=== PATIENT | female | born 1930 | race Caucasian/White ===

== ENCOUNTER → 2017-07-31 | Outpatient (CLI) | payer MEDICARE, OTHER | END | disposition home or self-care (01) | LOC: HKI 13:24 | DX: M16.12 Unilateral primary osteoarthritis, left hip (principal); I10 Essential (primary) hypertension; E03.9 Hypothyroidism, unspecified | CPT/HCPCS: G0463 ==

== ENCOUNTER 2017-09-17 08:48 | Inpatient (IN) | payer MEDICARE, OTHER ==
[~2017-09-17 08:48] MED LIST: ACETAMINOPHEN 1000MG/100ML IV 100 ML IVPB; ATROPINE 1 MG/10 ML SYRINGE IV; DEXAMETHASONE 4 MG/ML 1 ML INJ IV; DIPHENHYDRAMINE 50 MG INJ IV; EPHEDrine SULFATE 50 MG/5 ML SYG IV; FENTAnyl 50 MCG/ML VIAL IV; HYDROmorphONE (0.2 MG/ML) 10ML SYG IV; LABETALOL HCL 20MG INJ IV; LANSOPRAZOLE 30 MG CAP PO; MEPERIDINE 25 MG INJ IV; MIDAZOLAM 1 MG/ML 2 ML INJ IV; ONDANSETRON 4 MG INJ IV; OXYCODONE/ACETAMINOPHEN (5/325) TAB PO; hydrALAzine 20 MG INJ IV; morphine (1 MG/ML) 10ML SYRINGE IV
[2017-09-17] MEDS: ACETAMINOPHEN 1000MG/100ML IV 100 ML IVPB (09:38)
[2017-09-17] MEDS: ONDANSETRON 4 MG INJ IV ×4 (09:38→17:54)
[2017-09-17] MEDS: LANSOPRAZOLE 30 MG CAP PO (09:38)
[2017-09-17] MEDS: DEXAMETHASONE 4 MG/ML 1 ML INJ IV (09:39)
[2017-09-17] MEDS ORDERED: ROCURONIUM 50 MG INJ ×2 (10:41→10:43)
[2017-09-17] MEDS ORDERED: MIDAZOLAM 1 MG/ML 2 ML INJ ×2 (10:41→10:43)
[2017-09-17] MEDS ORDERED: DEXAMETHASONE 4 MG/ML 1 ML INJ (10:41)
[2017-09-17] MEDS ORDERED: FENTAnyl 50 MCG/ML VIAL ×2 (10:41→10:43)
[2017-09-17] MEDS ORDERED: ONDANSETRON 4 MG INJ (10:41)
[2017-09-17] MEDS ORDERED: PROPOFOL 100 ML (10:41)
[2017-09-17] MEDS ORDERED: NEOSTIGMINE 3 MG/3 ML SYRINGE ×2 (10:41→10:43)
[2017-09-17] MEDS ORDERED: GLYCOPYRROLATE 0.4 MG INJ ×2 (10:41→10:43)
[2017-09-17] MEDS ORDERED: CEFAZOLIN 1 GM INJ (10:41)
[2017-09-17] MEDS ORDERED: PROPOFOL 20 ML ×2 (10:41→10:43)
[2017-09-17] MEDS ORDERED: LIDOCAINE 2% (SDV) 5 ML INJ (10:42)
[2017-09-17] MEDS ORDERED: SUGAMMADEX SODIUM 200 MG/2 ML VIAL IV ×2 (11:16→13:07)
[2017-09-17] MEDS ORDERED: BACITRACIN 50000 UNITS INJ (11:32)
[2017-09-17] MEDS ORDERED: POLYMYXIN B 500000 UNIT INJ (11:34)
[2017-09-17] MEDS: LACTATED RINGER'S 1,000 ML IV (11:40)
[2017-09-17] MEDS ORDERED: DIPHENHYDRAMINE 50 MG INJ IV ×2 (12:00→13:00)
[2017-09-17] MEDS ORDERED: TRIMETHOBENZAMIDE 100 MG/ML VIAL IM ×2 (12:00→13:00)
[2017-09-17] MEDS ORDERED: NALOXONE (0.4 MG/ML) INJ IV (12:00)
[2017-09-17] MEDS ORDERED: MAGNESIUM HYDROXIDE 30ML CUP PO (12:00)
[2017-09-17] MEDS ORDERED: NA PHOSPHATE/BIPHOS 133 ML ENEMA PR (12:00)
[2017-09-17] MEDS ORDERED: NACL 0.9% 3 ML SYG IV (12:00)
[2017-09-17] MEDS ORDERED: SENNA/DOCUSATE NA (8.6MG/50MG) TAB PO (12:00)
[2017-09-17] MEDS ORDERED: BETHANECHOL 25 MG TAB PO (12:00)
[2017-09-17] MEDS ORDERED: oxyCODONE 5 MG TAB PO ×2 (12:00)
[2017-09-17] MEDS ORDERED: BISACODYL 10 MG SUPP PR (12:00)
[2017-09-17] MEDS: TRANEXAMIC ACID 1,000 MG in D5W 100 ML AT INCISION X1 IVPB (12:17)
[2017-09-17] MEDS ORDERED: MEPERIDINE 25 MG INJ IV (13:00)
[2017-09-17] MEDS ORDERED: LABETALOL HCL 20MG INJ IV (13:00)
[2017-09-17] MEDS ORDERED: hydrALAzine 20 MG INJ IV (13:00)
[2017-09-17] MEDS ORDERED: ALBUTEROL 0.083% (NEB) 2.5 MG/3 ML AMP HHN (13:00)
[2017-09-17] MEDS ORDERED: FENTAnyl 50 MCG/ML VIAL IV ×3 (13:00)
[2017-09-17] MEDS ORDERED: HYDROmorphONE (0.2 MG/ML) 10ML SYG IV ×3 (13:00)
[2017-09-17] MEDS ORDERED: IPRATROPIUM (NEB) 0.5 MG/2.5 ML AMP HHN (13:00)
[2017-09-17] MEDS ORDERED: EPHEDrine SULFATE 50 MG/5 ML SYG IV (13:00)
[2017-09-17] MEDS ORDERED: OXYCODONE/ACETAMINOPHEN (5/325) TAB PO ×2 (13:00)
[2017-09-17] MEDS ORDERED: MIDAZOLAM 1 MG/ML 2 ML INJ IV (13:00)
[2017-09-17] MEDS: POLYMYXIN B 500000 UNIT INJ IRR (13:15)
[2017-09-17] MEDS: BACITRACIN 50000 UNITS INJ IRR (13:15)
[2017-09-17] MEDS: TRANEXAMIC ACID 1,000 MG in D5W 100 ML AT CLOSURE X1 IVPB (13:17)
[2017-09-17] MEDS: CEFAZOLIN 2 GM/50 ML (PMX) 50 ML (FOR WT < 120 KG) IVPB (13:59)
[2017-09-17] MEDS: DOCUSATE SODIUM 100 MG CAP PO (14:09)
[2017-09-17] MEDS: CEFAZOLIN 1 GM/50 ML (PMX) 50 ML IVPB ×2 (14:10→20:28)
[2017-09-17] MEDS: ASPIRIN (EC) 325 MG TAB PO (14:10)
[2017-09-17] MEDS ORDERED: ROPIVACAINE 0.5 % 30 ML VIAL (14:32)
[2017-09-17] MEDS: SOD CHLORIDE 0.9% 1,000 ML IV (15:14)
[2017-09-17] MEDS: oxyCODONE 5 MG TAB PO (18:43)
[2017-09-17] MEDS: GABAPENTIN 100 MG CAP PO (20:28)
[2017-09-18] MEDS: SOD CHLORIDE 0.9% 1,000 ML IV ×2 (00:02→03:28)
[2017-09-18] MEDS: CEFAZOLIN 1 GM/50 ML (PMX) 50 ML IVPB (03:28)
[2017-09-18 05:28] LABS: ADD MAN DIFF? NO
[2017-09-18 05:35] LABS: WHITE BLOOD COUNT 7.7 10^3/ul (4.8-10.8)
[2017-09-18 05:35] LABS: BASOPHILS % 0.1 % (0.0-2.0); HEMATOCRIT 30.5 % (37.0-47.0); HEMOGLOBIN 10.3 g/dl (12.0-16.0); LYMPHOCYTES # 0.7 10^3/ul (0.8-2.9); LYMPHOCYTES % 8.8 % (15.0-51.0); MEAN CORPUSCULAR HEMOGLOBIN 32.7 pg (29.0-33.0); MEAN CORPUSCULAR HGB CONC 33.8 g/dl (32.0-37.0); MEAN CORPUSCULAR VOLUME 96.8 fl (82.0-101.0); MEAN PLATELET VOLUME 9.3 fl (7.4-10.4); MONOCYTE # 0.7 10^3/ul (0.3-0.9); MONOCYTES % 9.6 % (0.0-11.0); NEUTROPHIL # 6.2 10^3/ul (1.6-7.5); NEUTROPHILS % 80.7 % (39.0-77.0); PLATELET COUNT 177 10^3/UL (140-415); RED BLOOD COUNT 3.15 10^6/ul (4.20-5.40); RED CELL DISTRIBUTION WIDTH 12.9 % (11.5-14.5)
[2017-09-18 05:49] LABS: ANION GAP 10 (8-16); BLOOD UREA NITROGEN 19 mg/dl (7-20); CALCIUM 8.7 mg/dl (8.4-10.2); CARBON DIOXIDE 26 mmol/L (21-31); CHLORIDE 109 mmol/L (97-110); CREATININE 0.58 mg/dl (0.44-1.00); GLUCOSE 123 mg/dl (70-220); POTASSIUM 4.8 mmol/L (3.5-5.1); SODIUM 140 mmol/L (135-144)
[2017-09-18] MEDS: PANTOPRAZOLE (EC) 40 MG TAB PO (05:53)
[2017-09-18] MEDS: ONDANSETRON 4 MG INJ IV ×2 (06:00)
[2017-09-18] MEDS: DOCUSATE SODIUM 100 MG CAP PO (09:37)
[2017-09-18] MEDS: CELECOXIB 100 MG CAP PO (09:37)
[2017-09-18] MEDS: GABAPENTIN 100 MG CAP PO (09:37)
[2017-09-18] MEDS: ASPIRIN (EC) 325 MG TAB PO (09:37)
[2017-09-18] MEDS: FERROUS FUMARATE (SR) TAB PO (09:37)
== END 2017-09-18 15:02 | disposition home health service (06) | DRG 470 ==
LOC: REC 08:48 → MS1 14:40
PROC: 0SRB02A Replacement of Left Hip Joint with Metal on Polyethylene Synthetic Substitute, Uncemented, Open Approach (ICD-10-PCS; principal; 2017-09-17 11:00)
DX: M16.12 Unilateral primary osteoarthritis, left hip (principal); E03.9 Hypothyroidism, unspecified; I10 Essential (primary) hypertension; I34.1 Nonrheumatic mitral (valve) prolapse
CPT/HCPCS: 72170; 80048; 85025; 86850; 86900; 86901; 88304; 88311; 93306; 97116; 97161; 97166

== ENCOUNTER → 2017-10-05 | Outpatient (CLI) | payer MEDICARE, OTHER | END | disposition home or self-care (01) | LOC: HKI 09:40 | DX: Z09 Encounter for follow-up examination after completed treatment for conditions other than malignant neoplasm (principal); Z96.642 Presence of left artificial hip joint | CPT/HCPCS: 73502 ==

== ENCOUNTER → 2017-11-13 | Outpatient (CLI) | payer MEDICARE, OTHER | END | disposition home or self-care (01) | LOC: HKI 10:10 | DX: M25.552 Pain in left hip (principal); Z96.642 Presence of left artificial hip joint | CPT/HCPCS: 73502 ==

== ENCOUNTER 2017-11-28 12:28 | Inpatient (IN) | payer MEDICARE, OTHER ==
[2017-11-28] MEDS: FUROSEMIDE 40 MG INJ IV ×2 (13:06→22:34)
[2017-11-28 13:07] LABS: ADD MAN DIFF? NO
[2017-11-28 13:08] LABS: WHITE BLOOD COUNT 5.7 10^3/ul (4.8-10.8)
[2017-11-28 13:08] LABS: BASOPHILS % 0.4 % (0.0-2.0); EOSINOPHILS % 0.5 % (0.0-7.0); HEMATOCRIT 41.5 % (37.0-47.0); HEMOGLOBIN 13.9 g/dl (12.0-16.0); LYMPHOCYTES # 1.1 10^3/ul (0.8-2.9); LYMPHOCYTES % 18.6 % (15.0-51.0); MEAN CORPUSCULAR HGB CONC 33.5 g/dl (32.0-37.0); MEAN CORPUSCULAR VOLUME 95.4 fl (82.0-101.0); MONOCYTE # 0.5 10^3/ul (0.3-0.9); MONOCYTES % 8.3 % (0.0-11.0); NEUTROPHIL # 4.1 10^3/ul (1.6-7.5); PLATELET COUNT 258 10^3/UL (140-415); RED BLOOD COUNT 4.35 10^6/ul (4.20-5.40); RED CELL DISTRIBUTION WIDTH 12.8 % (11.5-14.5)
[2017-11-28 13:33] LABS: ANION GAP 13 (8-16); BLOOD UREA NITROGEN 29 mg/dl (7-20); CALCIUM 9.8 mg/dl (8.4-10.2); CARBON DIOXIDE 20 mmol/L (21-31); CHLORIDE 109 mmol/L (97-110); CREATININE 0.72 mg/dl (0.44-1.00); GLUCOSE 117 mg/dl (70-220); POTASSIUM 4.6 mmol/L (3.5-5.1); SODIUM 137 mmol/L (135-144)
[2017-11-28] MEDS: SOD CHLORIDE 0.9% 100 ML (13:37)
[2017-11-28] MEDS: IOHEXOL 100 ML (13:38)
[2017-11-28 13:48] LABS: TROPONIN-I 0.235 ng/ml (0.000-0.120)
[2017-11-28] MEDS ORDERED: NITROGLYCERIN (SL) 0.4 MG TAB SL ×2 (14:00→14:30)
[2017-11-28] MEDS: NITROGLYCERIN 2% 1 GM OINT PKT TD (14:10)
[2017-11-28] MEDS: ASPIRIN 81 MG TAB PO (14:10)
[2017-11-28] MEDS ORDERED: ZOLPIDEM 5 MG TAB PO (14:30)
[2017-11-28] MEDS ORDERED: LORAZEPAM 0.5 MG TAB PO (14:30)
[2017-11-28] MEDS ORDERED: NACL 0.9% 3 ML SYG IV (14:30)
[2017-11-28 15:07] LABS: CREATINE KINASE 120 IU/L (23-200)
[2017-11-28 15:17] LABS: CK-MB 4.13 ng/ml (0.0-2.4)
[2017-11-28 19:53] LABS: CREATINE KINASE 105 IU/L (23-200)
[2017-11-28 20:06] LABS: CK INDEX 3.5; CK-MB 3.69 ng/ml (0.0-2.4); TROPONIN-I 0.181 ng/ml (0.000-0.120)
[2017-11-28] MEDS: FAMOTIDINE 20 MG TAB PO (21:00)
[2017-11-28] MEDS: ACETAMINOPHEN 325 MG TAB PO (21:00)
[2017-11-28] MEDS: HEPARIN 5,000 UNIT/0.5 ML VIAL SC (21:05)
[2017-11-28] MEDS: traMADol 50 MG TAB PO (22:34)
[2017-11-29 01:03] LABS: CREATINE KINASE 87 IU/L (23-200)
[2017-11-29 01:16] LABS: CK INDEX 3.3; CK-MB 2.87 ng/ml (0.0-2.4)
[2017-11-29 01:17] LABS: TROPONIN-I 0.218 ng/ml (0.000-0.120)
[2017-11-29 06:45] LABS: ADD MAN DIFF? NO
[2017-11-29 06:49] LABS: BASOPHILS % 0.4 % (0.0-2.0); EOSINOPHILS # 0.1 10^3/ul (0.0-0.5); HEMATOCRIT 38.9 % (37.0-47.0); HEMOGLOBIN 12.4 g/dl (12.0-16.0); LYMPHOCYTES % 13.2 % (15.0-51.0); MEAN CORPUSCULAR HEMOGLOBIN 31.2 pg (29.0-33.0); MEAN CORPUSCULAR HGB CONC 31.9 g/dl (32.0-37.0); MEAN PLATELET VOLUME 9.3 fl (7.4-10.4); MONOCYTE # 0.7 10^3/ul (0.3-0.9); MONOCYTES % 10.3 % (0.0-11.0); NEUTROPHIL # 5.4 10^3/ul (1.6-7.5); NEUTROPHILS % 74.8 % (39.0-77.0); PLATELET COUNT 219 10^3/UL (140-415); RED BLOOD COUNT 3.97 10^6/ul (4.20-5.40); RED CELL DISTRIBUTION WIDTH 13.2 % (11.5-14.5)
[2017-11-29 06:49] LABS: WHITE BLOOD COUNT 7.2 10^3/ul (4.8-10.8)
[2017-11-29 07:14] LABS: ALANINE AMINOTRANSFERASE 29 IU/L (13-69); ALBUMIN 3.4 g/dl (3.3-4.9); ALBUMIN/GLOBULIN RATIO 1.36; ALKALINE PHOSPHATASE 79 IU/L (42-121); ANION GAP 13 (8-16); ASPARTATE AMINO TRANSFERASE 20 IU/L (15-46); BILIRUBIN,INDIRECT 0.6 mg/dl (0-1.1); BILIRUBIN,TOTAL 0.6 mg/dl (0.2-1.3); BLOOD UREA NITROGEN 34 mg/dl (7-20); CALCIUM 9.2 mg/dl (8.4-10.2); CARBON DIOXIDE 25 mmol/L (21-31); CHLORIDE 105 mmol/L (97-110); CREATININE 1.16 mg/dl (0.44-1.00); GLUCOSE 111 mg/dl (70-220); POTASSIUM 4.3 mmol/L (3.5-5.1); SODIUM 139 mmol/L (135-144); TOTAL PROTEIN 5.9 g/dl (6.1-8.1)
[2017-11-29 07:24] LABS: CREATINE KINASE 75 IU/L (23-200)
[2017-11-29 07:30] LABS: CK INDEX 3.6; CK-MB 2.67 ng/ml (0.0-2.4)
[2017-11-29] MEDS: LEVOTHYROXINE 100 MCG TAB PO (07:56)
[2017-11-29] MEDS: traMADol 50 MG TAB PO (07:58)
[2017-11-29 08:05] LABS: HEMOGLOBIN A1C 5.4 % (0-5.9)
[2017-11-29] MEDS: FAMOTIDINE 20 MG TAB PO ×2 (08:14→21:42)
[2017-11-29] MEDS: ONDANSETRON 4 MG INJ IV ×2 (08:14→13:57)
[2017-11-29] MEDS: ASPIRIN 81 MG TAB PO (08:14)
[2017-11-29] MEDS: HEPARIN 5,000 UNIT/0.5 ML VIAL SC (08:17)
[2017-11-29] MEDS: LISINOPRIL 20 MG TAB PO (09:00)
[2017-11-29] MEDS: FUROSEMIDE 40 MG TAB PO (09:00)
[2017-11-29] MEDS: FUROSEMIDE 20 MG INJ IV (18:42)
[2017-11-29] MEDS: ENOXAPARIN 80 MG/0.8 ML SYG SC (18:50)
[2017-11-29] MEDS: NITROGLYCERIN 2% 1 GM OINT PKT TD (19:03)
[2017-11-29 20:25] LABS: TROPONIN-I 0.077 ng/ml (0.000-0.120)
[2017-11-29] MEDS: ACETAMINOPHEN 325 MG TAB PO (21:42)
[2017-11-30] MEDS: LEVOTHYROXINE 100 MCG TAB PO (06:11)
[2017-11-30] MEDS: ONDANSETRON 4 MG INJ IV (07:54)
[2017-11-30] MEDS: FAMOTIDINE 20 MG TAB PO ×2 (08:20→20:22)
[2017-11-30] MEDS: ASPIRIN 81 MG TAB PO (08:20)
[2017-11-30] MEDS: LISINOPRIL 20 MG TAB PO ×2 (08:20→08:25)
[2017-11-30] MEDS: FUROSEMIDE 20 MG INJ IV (08:21)
[2017-11-30] MEDS: ACETAMINOPHEN 325 MG TAB PO (13:57)
[2017-11-30] MEDS: morphine 2 MG INJ IV (18:09)
[2017-11-30] MEDS: FUROSEMIDE 40 MG INJ IV (18:09)
[2017-11-30] MEDS: ENOXAPARIN 80 MG/0.8 ML SYG SC (18:18)
[2017-12-01] MEDS: morphine 2 MG INJ IV (03:21)
[2017-12-01] MEDS: DIGOXIN 500 MCG INJ IV (05:40)
[2017-12-01] MEDS: LEVOTHYROXINE 100 MCG TAB PO (06:44)
[2017-12-01] MEDS ORDERED: METOPROLOL 5 MG INJ IV ×2 (07:00→08:00)
[2017-12-01 07:46] LABS: ADD MAN DIFF? NO
[2017-12-01 07:49] LABS: BASOPHILS % 0.4 % (0.0-2.0); EOSINOPHILS % 0.4 % (0.0-7.0); HEMATOCRIT 38.8 % (37.0-47.0); HEMOGLOBIN 12.6 g/dl (12.0-16.0); LYMPHOCYTES % 13.8 % (15.0-51.0); MEAN CORPUSCULAR HEMOGLOBIN 31.7 pg (29.0-33.0); MEAN CORPUSCULAR HGB CONC 32.5 g/dl (32.0-37.0); MEAN CORPUSCULAR VOLUME 97.5 fl (82.0-101.0); MEAN PLATELET VOLUME 9.5 fl (7.4-10.4); MONOCYTE # 0.7 10^3/ul (0.3-0.9); MONOCYTES % 10.7 % (0.0-11.0); NEUTROPHIL # 5.2 10^3/ul (1.6-7.5); NEUTROPHILS % 74.3 % (39.0-77.0); PLATELET COUNT 216 10^3/UL (140-415); RED BLOOD COUNT 3.98 10^6/ul (4.20-5.40)
[2017-12-01 07:49] LABS: WHITE BLOOD COUNT 6.9 10^3/ul (4.8-10.8)
[2017-12-01 08:08] LABS: MAGNESIUM 2.4 mg/dl (1.7-2.5)
[2017-12-01 08:17] LABS: TROPONIN-I 0.082 ng/ml (0.000-0.120)
[2017-12-01 08:32] LABS: ANION GAP 13 (8-16); BLOOD UREA NITROGEN 73 mg/dl (7-20); CALCIUM 9.1 mg/dl (8.4-10.2); CARBON DIOXIDE 25 mmol/L (21-31); CHLORIDE 103 mmol/L (97-110); CREATININE 1.46 mg/dl (0.44-1.00); GLUCOSE 102 mg/dl (70-220); POTASSIUM 4.6 mmol/L (3.5-5.1); SODIUM 136 mmol/L (135-144)
[2017-12-01] MEDS: ASPIRIN 81 MG TAB PO (08:47)
[2017-12-01] MEDS: FAMOTIDINE 20 MG TAB PO ×2 (08:48→20:53)
[2017-12-01] MEDS: LISINOPRIL 20 MG TAB PO (08:48)
[2017-12-01] MEDS: BUMETANIDE 6 MG in DEXTROSE 5% 36 ML IV (09:52)
[2017-12-01 10:12] LABS: ERYTHROCYTE SEDIMENTATION RATE 36 mm/Hr (0-30)
[2017-12-01] MEDS: METOPROLOL 5 MG INJ IV ×2 (12:17→17:26)
[2017-12-01] MEDS: IOHEXOL 350MG/ML 50 ML BTL (12:35)
[2017-12-01] MEDS: IOHEXOL 100 ML (12:35)
[2017-12-01] MEDS: SOD CHLORIDE 0.9% 100 ML (12:35)
[2017-12-01] MEDS: DIGOXIN 0.25 MG TAB PO ×2 (13:00→13:52)
[2017-12-01] MEDS: ENOXAPARIN 80 MG/0.8 ML SYG SC (18:17)
[2017-12-02] MEDS: METOPROLOL 5 MG INJ IV ×3 (06:00→13:01)
[2017-12-02] MEDS: LEVOTHYROXINE 100 MCG TAB PO (06:06)
[2017-12-02] MEDS: LISINOPRIL 20 MG TAB PO (09:00)
[2017-12-02] MEDS: ASPIRIN 81 MG TAB PO (09:14)
[2017-12-02] MEDS: FAMOTIDINE 20 MG TAB PO ×2 (09:14→20:51)
[2017-12-02] MEDS: FUROSEMIDE 20 MG INJ IV (09:15)
[2017-12-02] MEDS: DOCUSATE SODIUM 100 MG CAP PO (10:32)
[2017-12-02] MEDS: SPIRONOLACTONE 25 MG TAB PO (10:32)
[2017-12-02] MEDS: DIGOXIN 0.25 MG TAB PO (13:23)
[2017-12-02 14:23] LABS: ADD MAN DIFF? NO
[2017-12-02 14:25] LABS: BASOPHILS % 0.3 % (0.0-2.0); EOSINOPHILS % 0.6 % (0.0-7.0); HEMATOCRIT 42.2 % (37.0-47.0); HEMOGLOBIN 13.6 g/dl (12.0-16.0); LYMPHOCYTES # 0.8 10^3/ul (0.8-2.9); LYMPHOCYTES % 13.1 % (15.0-51.0); MEAN CORPUSCULAR HEMOGLOBIN 31.6 pg (29.0-33.0); MEAN CORPUSCULAR HGB CONC 32.2 g/dl (32.0-37.0); MEAN CORPUSCULAR VOLUME 97.9 fl (82.0-101.0); MEAN PLATELET VOLUME 9.6 fl (7.4-10.4); MONOCYTE # 0.6 10^3/ul (0.3-0.9); MONOCYTES % 9.9 % (0.0-11.0); NEUTROPHIL # 4.7 10^3/ul (1.6-7.5); NEUTROPHILS % 75.8 % (39.0-77.0); PLATELET COUNT 273 10^3/UL (140-415); RED BLOOD COUNT 4.31 10^6/ul (4.20-5.40); RED CELL DISTRIBUTION WIDTH 12.6 % (11.5-14.5)
[2017-12-02 14:25] LABS: WHITE BLOOD COUNT 6.3 10^3/ul (4.8-10.8)
[2017-12-02 14:46] LABS: MAGNESIUM 2.5 mg/dl (1.7-2.5)
[2017-12-02 14:53] LABS: B-TYPE NATRIURETIC PEPTIDE 9440 PG/ML (0-450)
[2017-12-02 16:14] LABS: ANION GAP 14 (8-16); BLOOD UREA NITROGEN 74 mg/dl (7-20); CALCIUM 9.2 mg/dl (8.4-10.2); CARBON DIOXIDE 24 mmol/L (21-31); CHLORIDE 102 mmol/L (97-110); GLUCOSE 132 mg/dl (70-220); POTASSIUM 4.1 mmol/L (3.5-5.1); SODIUM 136 mmol/L (135-144)
[2017-12-02 16:38] LABS: INR 0.93; PROTIME 12.5 Sec (11.9-14.9)
[2017-12-02] MEDS: ATORVASTATIN 20 MG TAB PO (20:50)
[2017-12-02] MEDS: METOPROLOL 25 MG TAB PO (20:52)
[2017-12-03] MEDS: LEVALBUTEROL (HFA) 15 GM INHALER INH (01:10)
[2017-12-03] MEDS: morphine LIQ (10 MG/5 ML) CUP PO ×2 (01:38→11:44)
[2017-12-03] MEDS ORDERED: LEVALBUTEROL (NEB) 0.63 MG/3 ML AMP (02:36)
[2017-12-03] MEDS: LEVALBUTEROL (NEB) 0.63 MG/3 ML AMP HHN ×2 (02:52→07:33)
[2017-12-03] MEDS: FUROSEMIDE 20 MG INJ IV ×3 (03:20→17:51)
[2017-12-03] MEDS ORDERED: LEVALBUTEROL (NEB) 0.63 MG/3 ML AMP HHN (05:00)
[2017-12-03] MEDS: LEVOTHYROXINE 100 MCG TAB PO (07:00)
[2017-12-03] MEDS: DOCUSATE SODIUM 100 MG CAP PO (08:17)
[2017-12-03] MEDS: SPIRONOLACTONE 25 MG TAB PO (08:17)
[2017-12-03] MEDS: METOPROLOL 25 MG TAB PO ×3 (08:17→21:46)
[2017-12-03] MEDS: FAMOTIDINE 20 MG TAB PO ×2 (08:17→21:45)
[2017-12-03 08:20] LABS: ADD MAN DIFF? NO
[2017-12-03 08:27] LABS: WHITE BLOOD COUNT 6.9 10^3/ul (4.8-10.8)
[2017-12-03 08:27] LABS: BASOPHILS % 0.3 % (0.0-2.0); EOSINOPHILS % 0.3 % (0.0-7.0); HEMATOCRIT 44.1 % (37.0-47.0); HEMOGLOBIN 14.3 g/dl (12.0-16.0); LYMPHOCYTES # 0.9 10^3/ul (0.8-2.9); LYMPHOCYTES % 12.3 % (15.0-51.0); MEAN CORPUSCULAR HEMOGLOBIN 31.2 pg (29.0-33.0); MEAN CORPUSCULAR HGB CONC 32.4 g/dl (32.0-37.0); MEAN CORPUSCULAR VOLUME 96.1 fl (82.0-101.0); MEAN PLATELET VOLUME 9.6 fl (7.4-10.4); MONOCYTE # 0.8 10^3/ul (0.3-0.9); MONOCYTES % 11.3 % (0.0-11.0); NEUTROPHIL # 5.2 10^3/ul (1.6-7.5); NEUTROPHILS % 75.5 % (39.0-77.0); PLATELET COUNT 294 10^3/UL (140-415); RED BLOOD COUNT 4.59 10^6/ul (4.20-5.40); RED CELL DISTRIBUTION WIDTH 12.6 % (11.5-14.5)
[2017-12-03 08:45] LABS: ANION GAP 15 (8-16); BLOOD UREA NITROGEN 68 mg/dl (7-20); CALCIUM 9.5 mg/dl (8.4-10.2); CARBON DIOXIDE 25 mmol/L (21-31); CHLORIDE 103 mmol/L (97-110); CREATININE 0.86 mg/dl (0.44-1.00); GLUCOSE 140 mg/dl (70-220); POTASSIUM 4.3 mmol/L (3.5-5.1); SODIUM 139 mmol/L (135-144)
[2017-12-03] MEDS: LIDOCAINE 1% (MDV) 10 ML INJ (09:41)
[2017-12-03] MEDS: ONDANSETRON 4 MG TAB PO (10:07)
[2017-12-03] MEDS: traMADol 50 MG TAB PO (10:07)
[2017-12-03 13:36] LABS: FLD MN% 95.5 %; FLD PMN% 4.5 %; FLD RBC 6000 /uL; FLD WBC 709 /cmm
[2017-12-03 13:39] LABS: FLUID TYPE THORACENTESIS FLUID
[2017-12-03 13:46] LABS: FLUID GLUCOSE 128 mg/dl; FLUID TOTAL PROTEIN 2.2 g/dl
[2017-12-03] MEDS: ASPIRIN 81 MG TAB PO (13:50)
[2017-12-03 14:18] LABS: FLD TYPE PARACENTHESIS
[2017-12-03 14:18] LABS: FLD CLARITY HAZY; FLD COLOR YELLOW
[2017-12-03] MEDS: ACETAMINOPHEN 325 MG TAB PO (15:36)
[2017-12-03] MEDS ORDERED: LISINOPRIL 5 MG TAB PO (21:00)
[2017-12-03] MEDS: ATORVASTATIN 20 MG TAB PO (21:45)
[2017-12-04 06:22] LABS: ADD MAN DIFF? NO
[2017-12-04 06:33] LABS: WHITE BLOOD COUNT 5.7 10^3/ul (4.8-10.8)
[2017-12-04 06:33] LABS: BASOPHILS % 0.5 % (0.0-2.0); EOSINOPHILS # 0.1 10^3/ul (0.0-0.5); EOSINOPHILS % 2.5 % (0.0-7.0); HEMATOCRIT 42.5 % (37.0-47.0); HEMOGLOBIN 13.6 g/dl (12.0-16.0); LYMPHOCYTES # 1.3 10^3/ul (0.8-2.9); MEAN CORPUSCULAR HEMOGLOBIN 31.6 pg (29.0-33.0); MEAN CORPUSCULAR VOLUME 98.6 fl (82.0-101.0); MEAN PLATELET VOLUME 9.8 fl (7.4-10.4); MONOCYTE # 0.8 10^3/ul (0.3-0.9); MONOCYTES % 13.2 % (0.0-11.0); NEUTROPHIL # 3.5 10^3/ul (1.6-7.5); NEUTROPHILS % 60.4 % (39.0-77.0); PLATELET COUNT 257 10^3/UL (140-415); RED BLOOD COUNT 4.31 10^6/ul (4.20-5.40); RED CELL DISTRIBUTION WIDTH 12.5 % (11.5-14.5)
[2017-12-04] MEDS: LEVOTHYROXINE 100 MCG TAB PO (06:33)
[2017-12-04 06:56] LABS: ALANINE AMINOTRANSFERASE 23 IU/L (13-69); ALBUMIN 3.4 g/dl (3.3-4.9); ALBUMIN/GLOBULIN RATIO 1.06; ALKALINE PHOSPHATASE 83 IU/L (42-121); ANION GAP 14 (8-16); ASPARTATE AMINO TRANSFERASE 21 IU/L (15-46); BILIRUBIN,INDIRECT 0.3 mg/dl (0-1.1); BILIRUBIN,TOTAL 0.3 mg/dl (0.2-1.3); BLOOD UREA NITROGEN 74 mg/dl (7-20); CALCIUM 9.2 mg/dl (8.4-10.2); CARBON DIOXIDE 30 mmol/L (21-31); CHLORIDE 97 mmol/L (97-110); CREATININE 0.97 mg/dl (0.44-1.00); GLUCOSE 119 mg/dl (70-220); POTASSIUM 4.7 mmol/L (3.5-5.1); SODIUM 136 mmol/L (135-144); TOTAL PROTEIN 6.6 g/dl (6.1-8.1)
[2017-12-04 07:03] LABS: MAGNESIUM 2.7 mg/dl (1.7-2.5)
[2017-12-04] MEDS: ONDANSETRON 4 MG TAB PO ×2 (07:28→20:52)
[2017-12-04] MEDS: FAMOTIDINE 20 MG TAB PO ×2 (07:28→20:47)
[2017-12-04] MEDS: METOPROLOL 25 MG TAB PO ×2 (07:28→20:46)
[2017-12-04] MEDS: SPIRONOLACTONE 25 MG TAB PO (07:28)
[2017-12-04] MEDS: FUROSEMIDE 20 MG INJ IV (07:29)
[2017-12-04] MEDS: ACETAMINOPHEN 325 MG TAB PO ×2 (07:29→16:16)
[2017-12-04] MEDS: LIDOCAINE 1% (MDV) 10 ML INJ (08:41)
[2017-12-04] MEDS: ONDANSETRON 4 MG INJ IV ×2 (09:26→19:03)
[2017-12-04] MEDS: morphine 2 MG INJ IV (09:26)
[2017-12-04 10:14] LABS: FLD MN% 93.3 %; FLD PMN% 6.7 %; FLD RBC 0 /uL; FLD WBC 255 /cmm
[2017-12-04 10:40] LABS: FLUID GLUCOSE 121 mg/dl; FLUID TOTAL PROTEIN 2.1 g/dl; FLUID TYPE THORACENTESIS FLUID
[2017-12-04 10:47] LABS: FLD TYPE THORACENTHESIS
[2017-12-04 10:47] LABS: FLD CLARITY CLOUDY; FLD COLOR YELLOW
[2017-12-04] MEDS: REGADENOSON 0.4 MG/5 ML SYG (11:27)
[2017-12-04] MEDS: DOCUSATE SODIUM 100 MG CAP PO (14:47)
[2017-12-04] MEDS: ASPIRIN 81 MG TAB PO (14:47)
[2017-12-04] MEDS: FUROSEMIDE 40 MG INJ IV (14:48)
[2017-12-04] MEDS: ATORVASTATIN 40 MG TAB PO (20:46)
[2017-12-05] MEDS: ONDANSETRON 4 MG INJ IV ×3 (00:13→17:52)
[2017-12-05] MEDS: FUROSEMIDE 20 MG INJ IV ×2 (05:14→18:00)
[2017-12-05] MEDS: LEVOTHYROXINE 100 MCG TAB PO (06:53)
[2017-12-05 07:05] LABS: ADD MAN DIFF? NO
[2017-12-05] MEDS: traMADol 50 MG TAB PO ×2 (07:07→14:08)
[2017-12-05 07:12] LABS: BASOPHILS % 0.4 % (0.0-2.0); EOSINOPHILS % 0.3 % (0.0-7.0); HEMATOCRIT 44.9 % (37.0-47.0); HEMOGLOBIN 14.4 g/dl (12.0-16.0); LYMPHOCYTES # 1.3 10^3/ul (0.8-2.9); LYMPHOCYTES % 18.4 % (15.0-51.0); MEAN CORPUSCULAR HEMOGLOBIN 31.4 pg (29.0-33.0); MEAN CORPUSCULAR HGB CONC 32.1 g/dl (32.0-37.0); MEAN PLATELET VOLUME 9.5 fl (7.4-10.4); MONOCYTE # 0.7 10^3/ul (0.3-0.9); MONOCYTES % 9.5 % (0.0-11.0); PLATELET COUNT 276 10^3/UL (140-415); RED BLOOD COUNT 4.58 10^6/ul (4.20-5.40); RED CELL DISTRIBUTION WIDTH 12.6 % (11.5-14.5)
[2017-12-05 07:12] LABS: WHITE BLOOD COUNT 7.1 10^3/ul (4.8-10.8)
[2017-12-05 07:47] LABS: ANION GAP 16 (8-16); BLOOD UREA NITROGEN 75 mg/dl (7-20); CALCIUM 9.3 mg/dl (8.4-10.2); CARBON DIOXIDE 29 mmol/L (21-31); CHLORIDE 99 mmol/L (97-110); CREATININE 1.09 mg/dl (0.44-1.00); GLUCOSE 121 mg/dl (70-220); POTASSIUM 5.1 mmol/L (3.5-5.1); SODIUM 139 mmol/L (135-144)
[2017-12-05 08:00] LABS: MAGNESIUM 2.7 mg/dl (1.7-2.5)
[2017-12-05] MEDS: FAMOTIDINE 20 MG TAB PO ×2 (08:12→20:19)
[2017-12-05] MEDS: SPIRONOLACTONE 25 MG TAB PO (08:12)
[2017-12-05] MEDS: METOPROLOL 25 MG TAB PO ×2 (08:12→20:21)
[2017-12-05] MEDS: ASPIRIN 81 MG TAB PO (08:12)
[2017-12-05] MEDS: LEVALBUTEROL (NEB) 0.63 MG/3 ML AMP HHN (14:29)
[2017-12-05] MEDS: DOCUSATE SODIUM 100 MG CAP PO (14:50)
[2017-12-05] MEDS: MAGNESIUM HYDROXIDE 30ML CUP PO (17:18)
[2017-12-05] MEDS: SALINE 0.65% 45 ML NAS SPRAY NASAL (17:19)
[2017-12-05 19:59] LABS: TROPONIN-I < 0.012 ng/ml (0.000-0.120)
[2017-12-05] MEDS: ATORVASTATIN 40 MG TAB PO (20:21)
[2017-12-06] MEDS: FUROSEMIDE 20 MG INJ IV (06:18)
[2017-12-06] MEDS: LEVOTHYROXINE 100 MCG TAB PO (06:18)
[2017-12-06] MEDS: ASPIRIN 81 MG TAB PO (08:08)
[2017-12-06] MEDS: SPIRONOLACTONE 25 MG TAB PO (08:09)
[2017-12-06] MEDS: METOPROLOL 25 MG TAB PO ×2 (08:09→21:14)
[2017-12-06] MEDS: FAMOTIDINE 20 MG TAB PO ×2 (08:09→21:12)
[2017-12-06 12:44] LABS: ANION GAP 17 (8-16); BLOOD UREA NITROGEN 68 mg/dl (7-20); CARBON DIOXIDE 25 mmol/L (21-31); CHLORIDE 95 mmol/L (97-110); CREATININE 0.85 mg/dl (0.44-1.00); GLUCOSE 170 mg/dl (70-220); POTASSIUM 4.7 mmol/L (3.5-5.1); SODIUM 132 mmol/L (135-144)
[2017-12-06] MEDS: BUMETANIDE 3 MG in DEXTROSE 5% 18 ML IV (14:55)
[2017-12-06] MEDS: LEVALBUTEROL (NEB) 0.63 MG/3 ML AMP HHN (15:48)
[2017-12-06] MEDS: ATORVASTATIN 40 MG TAB PO (21:13)
[2017-12-06] MEDS: ACETAMINOPHEN 325 MG TAB PO (22:47)
[2017-12-06] MEDS: SALINE 0.65% 45 ML NAS SPRAY NASAL (22:50)
[2017-12-07] MEDS: LEVOTHYROXINE 100 MCG TAB PO (06:05)
[2017-12-07] MEDS: FUROSEMIDE 20 MG INJ IV (06:15)
[2017-12-07 07:16] LABS: ADD MAN DIFF? NO
[2017-12-07 07:18] LABS: WHITE BLOOD COUNT 8.9 10^3/ul (4.8-10.8)
[2017-12-07 07:18] LABS: BASOPHILS % 0.4 % (0.0-2.0); EOSINOPHILS % 0.3 % (0.0-7.0); HEMATOCRIT 44.3 % (37.0-47.0); HEMOGLOBIN 14.7 g/dl (12.0-16.0); LYMPHOCYTES # 1.6 10^3/ul (0.8-2.9); LYMPHOCYTES % 17.5 % (15.0-51.0); MEAN CORPUSCULAR HEMOGLOBIN 32.1 pg (29.0-33.0); MEAN CORPUSCULAR HGB CONC 33.2 g/dl (32.0-37.0); MEAN CORPUSCULAR VOLUME 96.7 fl (82.0-101.0); MEAN PLATELET VOLUME 9.8 fl (7.4-10.4); MONOCYTES % 11.1 % (0.0-11.0); NEUTROPHIL # 6.2 10^3/ul (1.6-7.5); NEUTROPHILS % 70.1 % (39.0-77.0); PLATELET COUNT 301 10^3/UL (140-415); RED BLOOD COUNT 4.58 10^6/ul (4.20-5.40); RED CELL DISTRIBUTION WIDTH 12.7 % (11.5-14.5)
[2017-12-07 07:51] LABS: ANION GAP 15 (8-16); BLOOD UREA NITROGEN 62 mg/dl (7-20); CALCIUM 9.1 mg/dl (8.4-10.2); CARBON DIOXIDE 32 mmol/L (21-31); CHLORIDE 96 mmol/L (97-110); CREATININE 0.96 mg/dl (0.44-1.00); GLUCOSE 108 mg/dl (70-220); INR 0.96; POTASSIUM 4.7 mmol/L (3.5-5.1); PROTIME 12.9 Sec (11.9-14.9); SODIUM 138 mmol/L (135-144)
[2017-12-07] MEDS: ONDANSETRON 4 MG INJ IV (07:53)
[2017-12-07 07:57] LABS: MAGNESIUM 3.2 mg/dl (1.7-2.5)
[2017-12-07] MEDS: ASPIRIN 81 MG TAB PO (08:30)
[2017-12-07] MEDS: FAMOTIDINE 20 MG TAB PO ×2 (08:30→22:19)
[2017-12-07] MEDS: SPIRONOLACTONE 25 MG TAB PO (08:30)
[2017-12-07] MEDS: METOPROLOL 25 MG TAB PO ×2 (08:31→22:19)
[2017-12-07] MEDS: LIDOCAINE 1% (MDV) 10 ML INJ (09:26)
[2017-12-07] MEDS ORDERED: FENTAnyl 50 MCG/ML VIAL (13:47)
[2017-12-07] MEDS ORDERED: HEPARIN 1000 UNITS/ML 10 ML INJ ×2 (13:47→13:48)
[2017-12-07] MEDS ORDERED: MIDAZOLAM 1 MG/ML 2 ML INJ (13:48)
[2017-12-07] MEDS ORDERED: IODIXANOL LOCM 100 ML BTL (13:48)
[2017-12-07] MEDS ORDERED: ONDANSETRON 4 MG INJ (13:48)
[2017-12-07] MEDS ORDERED: VERAPAMIL 5 MG INJ (13:48)
[2017-12-07] MEDS ORDERED: NITROGLYCERIN (IC) 100 MCG/ML INJ (13:48)
[2017-12-07] MEDS: BARIUM SULF 2% 450 ML BTL (BERRY SMOOTHIE) PO (18:35)
[2017-12-07 18:49] LABS: CANCER ANTIGEN 125 98.3 U/ml (0.0-35.0)
[2017-12-07] MEDS: ATORVASTATIN 40 MG TAB PO (22:19)
[2017-12-07] MEDS: BUMETANIDE 1 MG INJ IV (22:22)
[2017-12-08] MEDS: ACETAMINOPHEN 325 MG TAB PO ×2 (01:33→12:33)
[2017-12-08] MEDS: BUMETANIDE 1 MG INJ IV (06:33)
[2017-12-08] MEDS: LEVOTHYROXINE 100 MCG TAB PO (06:34)
[2017-12-08 07:17] LABS: ADD MAN DIFF? NO
[2017-12-08 07:30] LABS: WHITE BLOOD COUNT 9.1 10^3/ul (4.8-10.8)
[2017-12-08 07:30] LABS: BASOPHILS % 0.4 % (0.0-2.0); EOSINOPHILS % 0.4 % (0.0-7.0); HEMATOCRIT 43.2 % (37.0-47.0); HEMOGLOBIN 14.2 g/dl (12.0-16.0); LYMPHOCYTES # 1.7 10^3/ul (0.8-2.9); LYMPHOCYTES % 18.4 % (15.0-51.0); MEAN CORPUSCULAR HEMOGLOBIN 31.5 pg (29.0-33.0); MEAN CORPUSCULAR HGB CONC 32.9 g/dl (32.0-37.0); MEAN CORPUSCULAR VOLUME 95.8 fl (82.0-101.0); MEAN PLATELET VOLUME 9.8 fl (7.4-10.4); MONOCYTE # 0.9 10^3/ul (0.3-0.9); MONOCYTES % 9.4 % (0.0-11.0); NEUTROPHIL # 6.5 10^3/ul (1.6-7.5); PLATELET COUNT 282 10^3/UL (140-415); RED BLOOD COUNT 4.51 10^6/ul (4.20-5.40); RED CELL DISTRIBUTION WIDTH 12.8 % (11.5-14.5)
[2017-12-08 08:11] LABS: ANION GAP 16 (8-16); BLOOD UREA NITROGEN 57 mg/dl (7-20); CALCIUM 8.9 mg/dl (8.4-10.2); CARBON DIOXIDE 31 mmol/L (21-31); CHLORIDE 93 mmol/L (97-110); CREATININE 1.02 mg/dl (0.44-1.00); GLUCOSE 95 mg/dl (70-220); POTASSIUM 4.4 mmol/L (3.5-5.1); SODIUM 136 mmol/L (135-144)
[2017-12-08] MEDS: ASPIRIN 81 MG TAB PO (08:58)
[2017-12-08] MEDS: FAMOTIDINE 20 MG TAB PO ×2 (08:58→21:14)
[2017-12-08] MEDS: METOPROLOL 25 MG TAB PO ×2 (08:58→21:00)
[2017-12-08] MEDS: SPIRONOLACTONE 25 MG TAB PO (08:58)
[2017-12-08] MEDS: LIDOCAINE 1% (MDV) 10 ML INJ (12:09)
[2017-12-08 12:41] LABS: FLD MN% 98.1 %; FLD PMN% 1.9 %; FLD RBC 4000 /uL; FLD WBC 263 /cmm
[2017-12-08 14:04] LABS: FLD TYPE THORACENTHESIS
[2017-12-08 14:05] LABS: FLD CLARITY HAZY; FLD COLOR YELLOW
[2017-12-08] MEDS: morphine LIQ (10 MG/5 ML) CUP PO ×2 (14:46→22:04)
[2017-12-08] MEDS: LISINOPRIL 5 MG TAB PO (21:00)
[2017-12-08] MEDS: ATORVASTATIN 40 MG TAB PO (21:14)
[2017-12-09] MEDS: LEVOTHYROXINE 100 MCG TAB PO (06:24)
[2017-12-09 07:36] LABS: ADD MAN DIFF? NO
[2017-12-09 07:40] LABS: BASOPHILS % 0.4 % (0.0-2.0); EOSINOPHILS # 0.1 10^3/ul (0.0-0.5); EOSINOPHILS % 0.7 % (0.0-7.0); HEMATOCRIT 41.9 % (37.0-47.0); HEMOGLOBIN 13.9 g/dl (12.0-16.0); LYMPHOCYTES # 1.5 10^3/ul (0.8-2.9); LYMPHOCYTES % 18.2 % (15.0-51.0); MEAN CORPUSCULAR HEMOGLOBIN 31.3 pg (29.0-33.0); MEAN CORPUSCULAR HGB CONC 33.2 g/dl (32.0-37.0); MEAN CORPUSCULAR VOLUME 94.4 fl (82.0-101.0); MEAN PLATELET VOLUME 9.7 fl (7.4-10.4); MONOCYTE # 0.8 10^3/ul (0.3-0.9); MONOCYTES % 9.8 % (0.0-11.0); NEUTROPHIL # 5.8 10^3/ul (1.6-7.5); NEUTROPHILS % 70.4 % (39.0-77.0); PLATELET COUNT 267 10^3/UL (140-415); RED BLOOD COUNT 4.44 10^6/ul (4.20-5.40); RED CELL DISTRIBUTION WIDTH 12.4 % (11.5-14.5)
[2017-12-09 07:40] LABS: WHITE BLOOD COUNT 8.3 10^3/ul (4.8-10.8)
[2017-12-09 07:59] LABS: ANION GAP 15 (8-16); BLOOD UREA NITROGEN 54 mg/dl (7-20); CALCIUM 8.8 mg/dl (8.4-10.2); CARBON DIOXIDE 31 mmol/L (21-31); CHLORIDE 92 mmol/L (97-110); CREATININE 0.83 mg/dl (0.44-1.00); GLUCOSE 120 mg/dl (70-220); POTASSIUM 4.5 mmol/L (3.5-5.1); SODIUM 133 mmol/L (135-144)
[2017-12-09 08:05] LABS: MAGNESIUM 2.8 mg/dl (1.7-2.5)
[2017-12-09] MEDS ORDERED: LISINOPRIL 5 MG TAB PO (09:00)
[2017-12-09] MEDS: SPIRONOLACTONE 25 MG TAB PO (09:35)
[2017-12-09] MEDS: METOPROLOL 25 MG TAB PO ×2 (09:35→21:00)
[2017-12-09] MEDS: DOCUSATE SODIUM 100 MG CAP PO (09:35)
[2017-12-09] MEDS: FAMOTIDINE 20 MG TAB PO ×2 (09:35→20:08)
[2017-12-09] MEDS: ASPIRIN 81 MG TAB PO (09:35)
[2017-12-09] MEDS: BUMETANIDE 1 MG TAB PO (09:36)
[2017-12-09] MEDS: LISINOPRIL 5 MG TAB PO (09:36)
[2017-12-09] MEDS: ACETAMINOPHEN 325 MG TAB PO (10:15)
[2017-12-09] MEDS: SOD CHLORIDE 0.9% 250 ML IV (17:38)
[2017-12-09] MEDS: ATORVASTATIN 40 MG TAB PO (20:08)
[2017-12-10] MEDS: LEVOTHYROXINE 100 MCG TAB PO (06:16)
[2017-12-10] MEDS: SALINE 0.65% 45 ML NAS SPRAY NASAL (06:16)
[2017-12-10 07:29] LABS: ADD MAN DIFF? NO
[2017-12-10 07:34] LABS: WHITE BLOOD COUNT 10.8 10^3/ul (4.8-10.8)
[2017-12-10 07:34] LABS: BASOPHILS % 0.2 % (0.0-2.0); EOSINOPHILS # 0.1 10^3/ul (0.0-0.5); EOSINOPHILS % 0.7 % (0.0-7.0); HEMATOCRIT 41.4 % (37.0-47.0); HEMOGLOBIN 13.4 g/dl (12.0-16.0); LYMPHOCYTES # 1.4 10^3/ul (0.8-2.9); LYMPHOCYTES % 12.8 % (15.0-51.0); MEAN CORPUSCULAR HGB CONC 32.4 g/dl (32.0-37.0); MEAN CORPUSCULAR VOLUME 95.8 fl (82.0-101.0); MEAN PLATELET VOLUME 9.7 fl (7.4-10.4); MONOCYTE # 0.9 10^3/ul (0.3-0.9); MONOCYTES % 8.1 % (0.0-11.0); NEUTROPHIL # 8.4 10^3/ul (1.6-7.5); NEUTROPHILS % 77.6 % (39.0-77.0); PLATELET COUNT 247 10^3/UL (140-415); RED BLOOD COUNT 4.32 10^6/ul (4.20-5.40); RED CELL DISTRIBUTION WIDTH 12.7 % (11.5-14.5)
[2017-12-10 08:05] LABS: MAGNESIUM 2.6 mg/dl (1.7-2.5)
[2017-12-10 08:08] LABS: ANION GAP 15 (8-16); BLOOD UREA NITROGEN 58 mg/dl (7-20); CALCIUM 8.7 mg/dl (8.4-10.2); CARBON DIOXIDE 28 mmol/L (21-31); CHLORIDE 94 mmol/L (97-110); CREATININE 1.01 mg/dl (0.44-1.00); GLUCOSE 107 mg/dl (70-220); POTASSIUM 4.2 mmol/L (3.5-5.1); SODIUM 133 mmol/L (135-144)
[2017-12-10] MEDS: METOPROLOL 25 MG TAB PO ×2 (08:10→21:00)
[2017-12-10] MEDS: BUMETANIDE 1 MG TAB PO (08:10)
[2017-12-10] MEDS: LISINOPRIL 5 MG TAB PO (08:11)
[2017-12-10] MEDS: FAMOTIDINE 20 MG TAB PO ×2 (08:11→21:13)
[2017-12-10] MEDS: ASPIRIN 81 MG TAB PO (08:11)
[2017-12-10] MEDS: SPIRONOLACTONE 25 MG TAB PO (08:11)
[2017-12-10] MEDS: IBUPROFEN 400 MG TAB PO ×2 (10:46→18:32)
[2017-12-10] MEDS: DOCUSATE SODIUM 100 MG CAP PO (12:59)
[2017-12-10] MEDS: LACTULOSE 30ML CUP PO (14:25)
[2017-12-10] MEDS: LACTATED RINGER'S 250 ML IV (14:25)
[2017-12-10] MEDS: BISACODYL (EC) 5 MG TAB PO (14:25)
[2017-12-10] MEDS: ATORVASTATIN 40 MG TAB PO (21:13)
[2017-12-11] MEDS: ACETAMINOPHEN 325 MG TAB PO ×2 (01:13→15:35)
[2017-12-11] MEDS: IBUPROFEN 400 MG TAB PO (02:51)
[2017-12-11] MEDS: SOD CHLORIDE 0.9% 250 ML IV (04:59)
[2017-12-11] MEDS: DIGOXIN 500 MCG INJ IV ×2 (05:07→09:32)
[2017-12-11] MEDS: LEVOTHYROXINE 100 MCG TAB PO (05:50)
[2017-12-11 07:09] LABS: ADD MAN DIFF? NO
[2017-12-11 07:28] LABS: BASOPHILS % 0.4 % (0.0-2.0); EOSINOPHILS # 0.1 10^3/ul (0.0-0.5); EOSINOPHILS % 1.1 % (0.0-7.0); HEMOGLOBIN 12.9 g/dl (12.0-16.0); LYMPHOCYTES # 1.4 10^3/ul (0.8-2.9); LYMPHOCYTES % 16.5 % (15.0-51.0); MEAN CORPUSCULAR HEMOGLOBIN 31.9 pg (29.0-33.0); MEAN CORPUSCULAR HGB CONC 33.1 g/dl (32.0-37.0); MEAN CORPUSCULAR VOLUME 96.3 fl (82.0-101.0); MEAN PLATELET VOLUME 9.8 fl (7.4-10.4); MONOCYTE # 0.8 10^3/ul (0.3-0.9); MONOCYTES % 9.3 % (0.0-11.0); NEUTROPHIL # 6.1 10^3/ul (1.6-7.5); NEUTROPHILS % 72.5 % (39.0-77.0); PLATELET COUNT 223 10^3/UL (140-415); RED BLOOD COUNT 4.05 10^6/ul (4.20-5.40); RED CELL DISTRIBUTION WIDTH 12.8 % (11.5-14.5)
[2017-12-11 07:28] LABS: WHITE BLOOD COUNT 8.4 10^3/ul (4.8-10.8)
[2017-12-11 07:50] LABS: MAGNESIUM 2.5 mg/dl (1.7-2.5)
[2017-12-11] MEDS: ASPIRIN 81 MG TAB PO (08:49)
[2017-12-11 08:50] LABS: ANION GAP 13 (8-16); BLOOD UREA NITROGEN 49 mg/dl (7-20); CALCIUM 8.4 mg/dl (8.4-10.2); CARBON DIOXIDE 25 mmol/L (21-31); CHLORIDE 99 mmol/L (97-110); CREATININE 0.91 mg/dl (0.44-1.00); GLUCOSE 98 mg/dl (70-220); SODIUM 133 mmol/L (135-144)
[2017-12-11] MEDS: SPIRONOLACTONE 25 MG TAB PO (08:50)
[2017-12-11] MEDS: FAMOTIDINE 20 MG TAB PO ×2 (08:50→20:55)
[2017-12-11] MEDS: LISINOPRIL 5 MG TAB PO (08:51)
[2017-12-11] MEDS: METOPROLOL 25 MG TAB PO ×2 (08:51→20:56)
[2017-12-11] MEDS: FUROSEMIDE 20 MG TAB PO (08:52)
[2017-12-11] MEDS: SOD CHLORIDE 0.9% 500 ML IV (09:54)
[2017-12-11] MEDS: SOD CHLORIDE 0.9% 1,000 ML IV (10:10)
[2017-12-11] MEDS: DOCUSATE SODIUM 100 MG CAP PO (15:35)
[2017-12-11] MEDS: ATORVASTATIN 40 MG TAB PO (20:54)
[2017-12-11] MEDS: AMIODARONE 200 MG TAB PO (20:55)
[2017-12-11] MEDS: FUROSEMIDE 20 MG INJ IV (22:00)
[2017-12-11] MEDS ORDERED: FUROSEMIDE 40 MG INJ IV (22:00)
[2017-12-12] MEDS: ACETAMINOPHEN 325 MG TAB PO (05:05)
[2017-12-12] MEDS: LEVOTHYROXINE 100 MCG TAB PO (05:51)
[2017-12-12] MEDS: METOPROLOL 25 MG TAB PO ×2 (08:21→21:00)
[2017-12-12] MEDS: ASPIRIN 81 MG TAB PO (08:21)
[2017-12-12] MEDS: AMIODARONE 200 MG TAB PO ×2 (08:21→21:08)
[2017-12-12] MEDS: FAMOTIDINE 20 MG TAB PO ×2 (08:22→21:08)
[2017-12-12] MEDS: FUROSEMIDE 20 MG TAB PO ×2 (13:53→17:39)
[2017-12-12] MEDS: IBUPROFEN 800 MG TAB PO (13:56)
[2017-12-12] MEDS: ATORVASTATIN 40 MG TAB PO (21:08)
[2017-12-13] MEDS: ACETAMINOPHEN 325 MG TAB PO (04:57)
[2017-12-13] MEDS: LEVOTHYROXINE 100 MCG TAB PO (06:31)
[2017-12-13] MEDS: FUROSEMIDE 20 MG TAB PO ×2 (06:32→17:49)
[2017-12-13 08:05] LABS: ALANINE AMINOTRANSFERASE 35 IU/L (13-69); ALBUMIN 3.3 g/dl (3.3-4.9); ALBUMIN/GLOBULIN RATIO 1.17; ALKALINE PHOSPHATASE 90 IU/L (42-121); ANION GAP 12 (8-16); ASPARTATE AMINO TRANSFERASE 24 IU/L (15-46); BILIRUBIN,INDIRECT 0.4 mg/dl (0-1.1); BILIRUBIN,TOTAL 0.4 mg/dl (0.2-1.3); BLOOD UREA NITROGEN 39 mg/dl (7-20); CALCIUM 8.9 mg/dl (8.4-10.2); CARBON DIOXIDE 28 mmol/L (21-31); CHLORIDE 102 mmol/L (97-110); CREATININE 0.93 mg/dl (0.44-1.00); GLUCOSE 111 mg/dl (70-220); POTASSIUM 4.8 mmol/L (3.5-5.1); SODIUM 137 mmol/L (135-144); TOTAL PROTEIN 6.1 g/dl (6.1-8.1)
[2017-12-13 08:08] LABS: MAGNESIUM 2.1 mg/dl (1.7-2.5)
[2017-12-13 08:11] LABS: B-TYPE NATRIURETIC PEPTIDE 4300 PG/ML (0-450)
[2017-12-13] MEDS: FAMOTIDINE 20 MG TAB PO ×2 (08:47→20:37)
[2017-12-13] MEDS: ASPIRIN 81 MG TAB PO (08:47)
[2017-12-13] MEDS: AMIODARONE 200 MG TAB PO ×2 (08:48→20:38)
[2017-12-13] MEDS: METOPROLOL 25 MG TAB PO ×2 (08:48→20:39)
[2017-12-13] MEDS: IBUPROFEN 800 MG TAB PO ×2 (10:17→17:50)
[2017-12-13] MEDS: BISACODYL (EC) 5 MG TAB PO (10:39)
[2017-12-13] MEDS: MAGNESIUM HYDROXIDE 30ML CUP PO (20:37)
[2017-12-13] MEDS: ATORVASTATIN 40 MG TAB PO (20:37)
[2017-12-14] MEDS: IBUPROFEN 800 MG TAB PO ×2 (00:46→09:10)
[2017-12-14] MEDS: FUROSEMIDE 20 MG TAB PO ×2 (06:06→17:33)
[2017-12-14] MEDS: LEVOTHYROXINE 100 MCG TAB PO (06:06)
[2017-12-14 07:29] LABS: ADD MAN DIFF? NO
[2017-12-14 07:32] LABS: WHITE BLOOD COUNT 6.5 10^3/ul (4.8-10.8)
[2017-12-14 07:32] LABS: BASOPHILS % 0.3 % (0.0-2.0); EOSINOPHILS # 0.3 10^3/ul (0.0-0.5); EOSINOPHILS % 5.3 % (0.0-7.0); HEMATOCRIT 41.2 % (37.0-47.0); HEMOGLOBIN 13.5 g/dl (12.0-16.0); LYMPHOCYTES # 1.3 10^3/ul (0.8-2.9); LYMPHOCYTES % 20.2 % (15.0-51.0); MEAN CORPUSCULAR HEMOGLOBIN 31.9 pg (29.0-33.0); MEAN CORPUSCULAR HGB CONC 32.8 g/dl (32.0-37.0); MEAN CORPUSCULAR VOLUME 97.4 fl (82.0-101.0); MEAN PLATELET VOLUME 9.6 fl (7.4-10.4); MONOCYTE # 0.8 10^3/ul (0.3-0.9); MONOCYTES % 12.7 % (0.0-11.0); NEUTROPHILS % 61.2 % (39.0-77.0); PLATELET COUNT 201 10^3/UL (140-415); RED BLOOD COUNT 4.23 10^6/ul (4.20-5.40); RED CELL DISTRIBUTION WIDTH 13.2 % (11.5-14.5)
[2017-12-14 07:57] LABS: ALANINE AMINOTRANSFERASE 33 IU/L (13-69); ALBUMIN 3.4 g/dl (3.3-4.9); ALBUMIN/GLOBULIN RATIO 1.36; ALKALINE PHOSPHATASE 78 IU/L (42-121); ANION GAP 15 (8-16); ASPARTATE AMINO TRANSFERASE 25 IU/L (15-46); BILIRUBIN,INDIRECT 0.4 mg/dl (0-1.1); BILIRUBIN,TOTAL 0.4 mg/dl (0.2-1.3); BLOOD UREA NITROGEN 40 mg/dl (7-20); CARBON DIOXIDE 30 mmol/L (21-31); CHLORIDE 98 mmol/L (97-110); GLUCOSE 112 mg/dl (70-220); MAGNESIUM 2.2 mg/dl (1.7-2.5); POTASSIUM 4.7 mmol/L (3.5-5.1); SODIUM 138 mmol/L (135-144); TOTAL PROTEIN 5.9 g/dl (6.1-8.1)
[2017-12-14] MEDS: FAMOTIDINE 20 MG TAB PO ×2 (09:05→21:18)
[2017-12-14] MEDS: ASPIRIN 81 MG TAB PO (09:05)
[2017-12-14] MEDS: AMIODARONE 200 MG TAB PO ×2 (09:06→21:19)
[2017-12-14] MEDS: METOPROLOL 25 MG TAB PO ×2 (09:07→21:22)
[2017-12-14] MEDS: BISACODYL (EC) 5 MG TAB PO (12:02)
[2017-12-14] MEDS: NA PHOSPHATE/BIPHOS 133 ML ENEMA PR (17:34)
[2017-12-14] MEDS: LACTULOSE 30ML CUP PO (18:45)
[2017-12-14] MEDS: MAGNESIUM CITRATE 300 ML BTL PO (19:00)
[2017-12-14] MEDS: ATORVASTATIN 40 MG TAB PO (21:18)
[2017-12-14] MEDS: APIXABAN 5 MG TABLET PO (21:20)
[2017-12-14] MEDS: ACETAMINOPHEN 325 MG TAB PO (23:40)
[2017-12-15] MEDS: METHYLPREDNISOLONE 40 MG INJ IV (00:25)
[2017-12-15] MEDS: LEVOTHYROXINE 100 MCG TAB PO (06:11)
[2017-12-15] MEDS: ACETAMINOPHEN 325 MG TAB PO ×2 (06:11→18:03)
[2017-12-15] MEDS: FUROSEMIDE 20 MG TAB PO ×2 (06:12→17:17)
[2017-12-15 07:48] LABS: ADD MAN DIFF? NO
[2017-12-15 07:55] LABS: ABNORMAL IP MESSAGE 1; BASOPHILS % 0.1 % (0.0-2.0); EOSINOPHILS % 0.4 % (0.0-7.0); HEMATOCRIT 39.2 % (37.0-47.0); LYMPHOCYTES # 0.5 10^3/ul (0.8-2.9); LYMPHOCYTES % 7.9 % (15.0-51.0); MEAN CORPUSCULAR HEMOGLOBIN 31.8 pg (29.0-33.0); MEAN CORPUSCULAR HGB CONC 33.2 g/dl (32.0-37.0); MEAN CORPUSCULAR VOLUME 95.8 fl (82.0-101.0); MEAN PLATELET VOLUME 9.8 fl (7.4-10.4); MONOCYTE # 0.2 10^3/ul (0.3-0.9); MONOCYTES % 2.5 % (0.0-11.0); NEUTROPHIL # 6.1 10^3/ul (1.6-7.5); NEUTROPHILS % 88.5 % (39.0-77.0); PLATELET COUNT 203 10^3/UL (140-415); RED BLOOD COUNT 4.09 10^6/ul (4.20-5.40); RED CELL DISTRIBUTION WIDTH 13.2 % (11.5-14.5)
[2017-12-15 07:55] LABS: WHITE BLOOD COUNT 6.8 10^3/ul (4.8-10.8)
[2017-12-15 07:59] LABS: POSITIVE DIFF @See below
[2017-12-15 08:09] LABS: ANION GAP 16 (8-16); BLOOD UREA NITROGEN 44 mg/dl (7-20); CALCIUM 9.1 mg/dl (8.4-10.2); CARBON DIOXIDE 27 mmol/L (21-31); CHLORIDE 97 mmol/L (97-110); CREATININE 1.11 mg/dl (0.44-1.00); GLUCOSE 153 mg/dl (70-220); POTASSIUM 4.7 mmol/L (3.5-5.1); SODIUM 135 mmol/L (135-144)
[2017-12-15 08:22] LABS: MAGNESIUM 2.3 mg/dl (1.7-2.5)
[2017-12-15] MEDS ORDERED: PHENYLephrine 10 MG INJ (10:18)
[2017-12-15] MEDS ORDERED: EPHEDrine SULFATE 50 MG/5 ML SYG (10:32)
[2017-12-15] MEDS: FAMOTIDINE 20 MG TAB PO ×2 (12:51→20:47)
[2017-12-15] MEDS: METOPROLOL 25 MG TAB PO ×2 (12:52→20:48)
[2017-12-15] MEDS: APIXABAN 5 MG TABLET PO ×2 (12:52→20:47)
[2017-12-15] MEDS: AMIODARONE 200 MG TAB PO ×2 (12:53→20:47)
[2017-12-15] MEDS: ATORVASTATIN 40 MG TAB PO (20:47)
[2017-12-15] MEDS: BISACODYL (EC) 5 MG TAB PO (23:02)
[2017-12-15] MEDS: MAGNESIUM HYDROXIDE 30ML CUP PO (23:02)
[2017-12-16] MEDS: ACETAMINOPHEN 325 MG TAB PO ×2 (04:54→13:54)
[2017-12-16] MEDS: LEVOTHYROXINE 100 MCG TAB PO (06:40)
[2017-12-16] MEDS: FUROSEMIDE 20 MG TAB PO ×2 (06:40→18:49)
[2017-12-16] MEDS: MAGNESIUM HYDROXIDE 30ML CUP PO (07:46)
[2017-12-16] MEDS: APIXABAN 5 MG TABLET PO ×2 (08:24→20:35)
[2017-12-16] MEDS: LISINOPRIL 5 MG TAB PO (08:26)
[2017-12-16] MEDS: AMIODARONE 200 MG TAB PO ×2 (08:26→20:33)
[2017-12-16] MEDS: FAMOTIDINE 20 MG TAB PO ×2 (08:26→20:35)
[2017-12-16] MEDS: METOPROLOL 25 MG TAB PO ×2 (08:27→20:33)
[2017-12-16] MEDS: ATORVASTATIN 40 MG TAB PO (20:35)
[2017-12-17] MEDS: FUROSEMIDE 20 MG TAB PO (05:40)
[2017-12-17] MEDS: LEVOTHYROXINE 100 MCG TAB PO (05:41)
[2017-12-17] MEDS: ACETAMINOPHEN 325 MG TAB PO (06:26)
[2017-12-17] MEDS: LISINOPRIL 5 MG TAB PO (08:04)
[2017-12-17] MEDS: METOPROLOL 25 MG TAB PO (08:04)
[2017-12-17] MEDS: FAMOTIDINE 20 MG TAB PO (08:08)
[2017-12-17] MEDS: AMIODARONE 200 MG TAB PO (08:08)
[2017-12-17] MEDS: APIXABAN 5 MG TABLET PO (08:08)
== END 2017-12-17 09:26 | disposition home or self-care (01) | DRG 280 ==
LOC: TEL 11-30 12:00 → E/R 12:28 → TEL 11-30 12:00
PROC: 4A023N7 Measurement of Cardiac Sampling and Pressure, Left Heart, Percutaneous Approach (ICD-10-PCS; principal; 2017-12-07 13:30)
PROC: B2111ZZ Fluoroscopy of Multiple Coronary Arteries using Low Osmolar Contrast (ICD-10-PCS; 2017-12-07 13:30)
PROC: 0W993ZZ Drainage of Right Pleural Cavity, Percutaneous Approach (ICD-10-PCS; 2017-12-07 13:44)
PROC: B245ZZ4 Ultrasonography of Left Heart, Transesophageal (ICD-10-PCS; 2017-12-07 13:44)
DX: I21.4 Non-ST elevation (NSTEMI) myocardial infarction (principal); I50.33 Acute on chronic diastolic (congestive) heart failure; N17.9 Acute kidney failure, unspecified; J90 Pleural effusion, not elsewhere classified; E87.1 Hypo-osmolality and hyponatremia; I25.10 Atherosclerotic heart disease of native coronary artery without angina pectoris; I11.0 Hypertensive heart disease with heart failure; E03.9 Hypothyroidism, unspecified; R10.13 Epigastric pain; I48.0 Paroxysmal atrial fibrillation; I05.8 Other rheumatic mitral valve diseases; I50.84 End stage heart failure
CPT/HCPCS: 32555; 36415; 71045; 71046; 71275; 74018; 74176; 76942; 78452; 80048; 80053; 82042; 82550; 82553; 82945; 83036; 83735; 83880; 83986; 84157; 84443; 84484; 85025; 85610; 85651; 86304; 87070; 87102; 87116; 88104; 88305; 89051; 92526; 92610; 93005; 93017; 93306; 93312; 93320; 93325; 93454; 94640; 94664; 96374; 97110; 97116; 97162; 97530; 99291-25

== ENCOUNTER 2018-01-27 12:54 | Inpatient (IN) | payer MEDICARE, OTHER ==
[2018-01-27] MEDS: BISACODYL 10 MG SUPP PR (17:00)
[2018-01-27 17:07] LABS: ADD MAN DIFF? NO
[2018-01-27 17:12] LABS: WHITE BLOOD COUNT 6.5 10^3/ul (4.8-10.8)
[2018-01-27 17:13] LABS: BASOPHILS % 0.5 % (0.0-2.0); EOSINOPHILS # 0.1 10^3/ul (0.0-0.5); EOSINOPHILS % 1.4 % (0.0-7.0); HEMATOCRIT 36.5 % (37.0-47.0); HEMOGLOBIN 11.8 g/dl (12.0-16.0); LYMPHOCYTES # 1.4 10^3/ul (0.8-2.9); LYMPHOCYTES % 21.6 % (15.0-51.0); MEAN CORPUSCULAR HEMOGLOBIN 31.8 pg (29.0-33.0); MEAN CORPUSCULAR HGB CONC 32.3 g/dl (32.0-37.0); MEAN CORPUSCULAR VOLUME 98.4 fl (82.0-101.0); MONOCYTE # 0.7 10^3/ul (0.3-0.9); MONOCYTES % 10.7 % (0.0-11.0); NEUTROPHIL # 4.3 10^3/ul (1.6-7.5); NEUTROPHILS % 65.2 % (39.0-77.0); PLATELET COUNT 266 10^3/UL (140-415); RED BLOOD COUNT 3.71 10^6/ul (4.20-5.40); RED CELL DISTRIBUTION WIDTH 16.7 % (11.5-14.5)
[2018-01-27] MEDS: LACTULOSE 30ML CUP PO (17:17)
[2018-01-27 17:31] LABS: ALANINE AMINOTRANSFERASE 92 IU/L (13-69); ALBUMIN 3.9 g/dl (3.3-4.9); ALBUMIN/GLOBULIN RATIO 1.25; ALKALINE PHOSPHATASE 280 IU/L (42-121); ANION GAP 14 (8-16); ASPARTATE AMINO TRANSFERASE 38 IU/L (15-46); BILIRUBIN,INDIRECT 0.7 mg/dl (0-1.1); BILIRUBIN,TOTAL 0.7 mg/dl (0.2-1.3); BLOOD UREA NITROGEN 41 mg/dl (7-20); CALCIUM 9.7 mg/dl (8.4-10.2); CARBON DIOXIDE 24 mmol/L (21-31); CHLORIDE 104 mmol/L (97-110); CREATININE 0.93 mg/dl (0.44-1.00); GLUCOSE 110 mg/dl (70-220); LIPASE 47 U/L (23-300); POTASSIUM 3.8 mmol/L (3.5-5.1); SODIUM 138 mmol/L (135-144)
[2018-01-27] MEDS: NA PHOSPHATE/BIPHOS 133 ML ENEMA PR (17:37)
[2018-01-27] MEDS ORDERED: ONDANSETRON 4 MG INJ IV (20:00)
[2018-01-27] MEDS ORDERED: ACETAMINOPHEN 325 MG TAB PO (20:00)
[2018-01-27 20:19] LABS: LACTIC ACID 1.5 mmol/L (0.5-2.0)
[2018-01-27] MEDS: AZITHROMYCIN 500MG/NS (PMX) 250 ML IV (20:28)
[2018-01-27] MEDS: CEFTRIAXONE 1 GM/50 ML (PMX) 50 ML IVPB (20:28)
[2018-01-27 21:40] LABS: LACTIC ACID 1.4 mmol/L (0.5-2.0)
[2018-01-27] MEDS: ALBUTEROL 0.083% (NEB) 2.5 MG/3 ML AMP HHN (22:15)
[2018-01-27] MEDS: IPRATROPIUM (NEB) 0.5 MG/2.5 ML AMP HHN (22:15)
[2018-01-28] MEDS ORDERED: LORAZEPAM 2 MG INJ (01:09)
[2018-01-28] MEDS ORDERED: FUROSEMIDE 20 MG INJ (01:16)
[2018-01-28] MEDS ORDERED: HALOPERIDOL 5 MG INJ (01:24)
[2018-01-28] MEDS ORDERED: FUROSEMIDE 40 MG INJ (01:27)
[2018-01-28 01:38] LABS: AADO2 Arterial 560.1 mmHg (7.0-24.0); Allen Test ACCEPTAB; Arterial Base Excess -10.1 mmol/L (-3.0-3); Arterial Blood Gas Oxygen Sat 93.1 mmHG (95.0-100.0); Arterial COHb 0.6 % (0.0-3.0); Arterial Fraction of Oxyhgb 92.3 % (93.0-99.0); Arterial HCO3 19.8 mmol/L (22.0-26.0); Arterial MetHb 0.3 % (0.0-1.5); Arterial Total Hemglobin 13.8 g/dl (12.0-18.0); Arterial pCO2 61.2 mmhg (35-45); MODE MASK - NRB; Site Left Radial
[2018-01-28] MEDS: FUROSEMIDE 40 MG INJ IV ×2 (01:42→07:27)
[2018-01-28] MEDS: HALOPERIDOL 5 MG INJ IM (01:42)
[2018-01-28 02:24] LABS: LACTIC ACID 3.5 mmol/L (0.5-2.0)
[2018-01-28] MEDS: LORAZEPAM 2 MG INJ IV (02:26)
[2018-01-28] MEDS: FUROSEMIDE 20 MG INJ IV (02:27)
[2018-01-28] MEDS ORDERED: METHYLPREDNISOLONE 125 MG INJ (07:22)
[2018-01-28] MEDS: METHYLPREDNISOLONE 40 MG INJ IV (07:26)
[2018-01-28] MEDS: ALBUTEROL/IPRATROPIUM (NEB) 3 ML AMP HHN (07:33)
[2018-01-28] MEDS ORDERED: CEFTRIAXONE 1 GM/50 ML (PMX) 50 ML IVPB (09:00)
[2018-01-28] MEDS ORDERED: AZITHROMYCIN 500MG/NS (PMX) 250 ML IVPB (10:00)
== END 2018-01-28 10:02 | disposition expired | DRG 195 ==
LOC: 6WM 19:44 → E/R 12:54
DX: J18.9 Pneumonia, unspecified organism (principal); I48.91 Unspecified atrial fibrillation; K59.00 Constipation, unspecified; I50.9 Heart failure, unspecified
CPT/HCPCS: 36415; 36600; 71045; 74176; 80053; 82803; 83605; 83690; 84484; 85025; 87040; 93005; 94640; 94664; 99285-25